=== PATIENT | male | born 1985 | race Caucasian/White ===

== ENCOUNTER → 2024-09-12 | Outpatient (CLI) | payer OTHER ==
[~2024-09-12] MED LIST: AMOXICILLIN 8751 TAB PO; IBU800 M1 PO; PREDNISONE20 MG PO; TYLENOL 500MG500 MG PO
== END ==
LOC: COL.RAD 07:55
DX: K44.9 Diaphragmatic hernia without obstruction or gangrene (principal); K21.9 Gastro-esophageal reflux disease without esophagitis